=== PATIENT | female | born 1980 | race Caucasian/White ===

== ENCOUNTER 2022-11-03 14:02 | Emergency (ER) | payer MEDICAID ==
[~2022-11-03] VITALS: Ht 170.2 cm; Wt 56.2 kg
[2022-11-03] MEDS ORDERED: SODIUM CHLORIDE 0.9% 1,000 ML IV ONE (14:15)
[2022-11-03] MEDS ORDERED: ONDANSETRON HCL 4 MG/2 ML VIAL IV ONE (14:15)
[2022-11-03 15:24] VITALS: BP 115/77
== END 2022-11-03 15:43 | disposition left against medical advice (07) ==
LOC: ER 14:02
DX: R53.1 Weakness (principal); R05.9 Cough, unspecified; F17.210 Nicotine dependence, cigarettes, uncomplicated; F12.10 Cannabis abuse, uncomplicated; Z98.51 Tubal ligation status; Z59.00 Homelessness unspecified
CPT/HCPCS: 71046

== ENCOUNTER 2023-03-10 23:19 | Emergency (ER) | payer MEDICAID ==
[~2023-03-10] VITALS: Ht 167.6 cm; Wt 60.7 kg
[2023-03-10 23:39] VITALS: BP 144/87
[2023-03-11] MEDS ORDERED: ONDA-144 PO (01:37)
[2023-03-11] MEDS ORDERED: MECL1TAB42 PO (01:37)
== END 2023-03-11 05:10 | disposition home or self-care (01) ==
LOC: ER 23:19
DX: S00.83XA Contusion of other part of head, initial encounter (principal); F17.210 Nicotine dependence, cigarettes, uncomplicated; Z59.00 Homelessness unspecified; Y04.2XXA Assault by strike against or bumped into by another person, initial encounter; Y93.89 Activity, other specified; Y92.89 Other specified places as the place of occurrence of the external cause; Y99.8 Other external cause status